=== PATIENT | male | born 1975 | race African-American/Black ===

== ENCOUNTER → 2017-09-27 | Outpatient (CLI) | payer BC ==
--- NOTE | 2017-09-27 11:27 | CT ---
EXAMINATION TYPE: CT lumbar spine wo con DATE OF EXAM: 09/27/2017 COMPARISON: NONE HISTORY: Low back pain CT DLP: 1015 mGycm Automated exposure control for dose reduction was used. An unenhanced CT of the lumbar spine was performed. Bone and soft tissue window settings are submitt ed as well as coronal and sagittal reconstructions. FINDINGS: Lumbar vertebral bodies show preserved height and alignment, bone mineralization. No evident spondylo lysis. Some loss of disc height present L5-S1. Vacuum phenomenon present at the sacroiliac joints. So me minimal spurring present on the left greater than right. L1-L2: Normal disc space height. No disc herniation protrusion or central stenosis. No facet joint arthropathy. No evidence for foraminal encroachment. L2-L3: Minimal posterior broad-based disc bulge causes only slight anterior mass effect on the thecal sac. No central stenosis or foraminal encroachment. L3-L4: Minimal posterior broad-based disc bulge. No significant central stenosis or foraminal encroac hment. L4-L5: Posterior broad-based disc bulge causes minimal anterior mass effect on the thecal sac. No sig nificant foraminal encroachment or central stenosis. L5-S1: Minimal posterior broad-based disc bulge may contact the proximal S1 nerve roots. No significa nt central stenosis or foraminal encroachment. IMPRESSION: No paraspinal masses are identified. Lumbar segments are intact. Mild degenerative disc disease, mil d degenerative changes suspected at the sacroiliac joints.
--- NOTE | 2017-09-27 11:29 | CT ---
EXAMINATION TYPE: CT thoracic spine wo con DATE OF EXAM: 09/27/2017 COMPARISON: NONE HISTORY: 1730 CT DLP: Low back pain mGycm Automated exposure control for dose reduction was used. Helical acquisition through the thoracic spin e. Coronal and sagittal reconstructions. FINDINGS: Thoracic vertebral bodies show preserved height and alignment. There is normal bone mineralization. M ultilevel spondylosis is present. There is no evident spinal stenosis, significant foraminal encroach ment, or disc herniation. IMPRESSION: THORACIC SPONDYLOSIS.
== END | disposition home or self-care (01) ==
LOC: RADCTMAIN 08:42
PROVIDERS: ATTEND Pediatrics
DX: M51.36 Other intervertebral disc degeneration, lumbar region (principal); M43.02 Spondylolysis, cervical region
CPT/HCPCS: 72128; 72131

== ENCOUNTER 2019-09-14 09:44 | Observation (INO) | payer BC, OTHER ==
[2019-09-14] MEDS ORDERED: NITROGLYCERIN OINT 1 INCH/GM PACKET TOPICAL STA (10:09)
[2019-09-14] MEDS ORDERED: ASPIRIN 81 MG PO STA (10:09)
[2019-09-14 10:24] LABS: Basophils # (A) 0.1 k/uL (0-0.2); Basophils % (A) 1 %; Eosinophils # (A) 0.1 k/uL (0-0.7); Eosinophils % (A) 1 %; HCT 42.9 % (39.0-53.0); HGB 14.7 gm/dL (13.0-17.5); Lymphocytes % (A) 26 %; MCH 31.9 pg (25.0-35.0); MCHC 34.3 g/dL (31.0-37.0); MCV 93.1 fL (80.0-100.0); Mean Platelet Volume 7.5; Monocytes # (A) 0.4 k/uL (0-1.0); Monocytes % (A) 5 %; Neutrophils # (A) 5.1 k/uL (1.3-7.7); Neutrophils % (A) 65 %; Platelet Count 231 k/uL (150-450); RBC 4.61 m/uL (4.30-5.90); RDW 12.5 % (11.5-15.5); WBC 7.8 k/uL (3.8-10.6)
[2019-09-14 10:33] LABS: Partial Thromboplastin Time 25.2 sec (22.0-30.0); Prothrombin Time 10.6 sec (9.0-12.0)
[2019-09-14 10:35] LABS: ALT 35 U/L (4-49); AST 33 U/L (17-59); African American GFR (CKD) >90 (>60 ml/min/1.73 sqM); Albumin 4.9 g/dL (3.5-5.0); Alkaline Phosphatase 58 U/L (38-126); Anion Gap 16 mmol/L; Blood Urea Nitrogen 13 mg/dL (9-20); Calcium 10.3 mg/dL (8.4-10.2); Carbon Dioxide 25 mmol/L (22-30); Chloride 97 mmol/L (98-107); Glucose 98 mg/dL (74-99); Magnesium 1.7 mg/dL (1.6-2.3); Non-African American GFR(CKD) >90 (>60 ml/min/1.73 sqM); Potassium 3.7 mmol/L (3.5-5.1); Sodium 138 mmol/L (137-145); Total Bilirubin 0.8 mg/dL (0.2-1.3); Total Protein 8.7 g/dL (6.3-8.2)
--- NOTE | 2019-09-14 11:07 | XR ---
EXAMINATION TYPE: XR chest 2V DATE OF EXAM: 09/14/2019 COMPARISON: NONE HISTORY: Chest pain TECHNIQUE: Frontal and lateral views of the chest are obtained. FINDINGS: There is no focal air space opacity. No evidence for pneumothorax. No pleural effusion. The cardiac silhouette size is within normal limits. The osseous structures are grossly intact. IMPRESSION: 1. No acute cardiopulmonary process.
--- NOTE | 2019-09-14 11:42 | ED ---
Chest Pain HPI - General Source: patient Mode of arrival: wheelchair Limitations: no limitations <Greer Holloway - Last Filed: 09/14/19 11:54> <Parveen Jimenez - Last Filed: 09/14/19 11:57> - General Chief Complaint: Chest Pain Stated Complaint: chest pain, SOB Time Seen by Provider: 09/14/19 10:09 - History of Present Illness Initial Comments: 43-year-old male with history of hypertension presenting today for chief complaint of chest pain, SOB. She states chest pain shortness of breath began this morning he states it radiated down his left arm. Patient states it was substernal and felt like a pressure. Patient states he feels heart racing. Patient denies experiencing this in the past patient does state that he thinks this may be related to be getting the medication Adipex. Patient states at one point while driving to work he felt presyncopal and that is when he decided to present to the emergency department for further evaluation. Denies DVT, history of pulmonary embolism history of leg swelling pain with deep inspiration or hemoptysis, no recent surgeries or travel. Patient admits to at nausea when he felt as the past hours for consistent since subsided denies jaw pain denies any known cardiac history. Patient denies diabetes, nonsmoker. Patient denies fevers, cough, congestion. Patient has had people within his department test + for covid 19. Patient denies any other + ROS. Upon arrival patinet given aspirin and nitroglycerin paste. (Greer Holloway) - Related Data Allergies Allergy/AdvReac Type Severity Reaction Status Date / Time No Known Allergies Allergy Verified 09/14/19 09:52 Review of Systems ROS Other: All systems not noted in ROS Statement are negative. <Greer Holloway - Last Filed: 09/14/19 11:54> ROS Other: All systems not noted in ROS Statement are negative. <Parveen Jimenez - Last Filed: 09/14/19 11:57> ROS Statement: Those systems with pertinent positive or pertinent negative responses have been documented in the HPI. EKG Findings - EKG Comments: EKG Findings:: Ventricular rate 79 beats minute, LA interval 180 ms, QRS adventist 80 ms, QT/QTC 360/412 ms. This is normal sinus no ST elevation or depression. <Greer Holloway - Last Filed: 09/14/19 11:54> Past Medical History Past Medical History: Hypertension History of Any Multi-Drug Resistant Organisms: None Reported Past Surgical History: No Surgical Hx Reported Smoking Status: Never smoker Past Alcohol Use History: Occasional Past Drug Use History: None Reported <Greer Holloway - Last Filed: 09/14/19 11:54> General Exam Limitations: no limitations <Greer Holloway - Last Filed: 09/14/19 11:54> - General Exam Comments Initial Comments: General: The patient is awake and alert, in no distress Eye: Pupils are equal, round and reactive to light, extra-ocular movements are intact. No nystagmus. There is normal conjunctiva bilaterally. No signs of icterus. Ears, nose, mouth and throat: There are moist mucous membranes and no oral lesions. Neck: The neck is supple, there is no tenderness or JVD. Cardiovascular: There is a regular rate and rhythm. No murmur, rub or gallop is appreciated. Respiratory: Lungs are clear to auscultation, respirations are non-labored, breath sounds are equal. No wheezes, stridor, rales, or rhonchi. Musculoskeletal: Normal ROM, no tenderness. Strength 5/5. Sensation intact. radial pulses equal bilaterally 2+. Neurological: A&O x 3. CN II-XII intact, There are no obvious motor or sensory deficits. Coordination appears grossly intact. Speech is normal. Skin: Skin is warm and dry and no rashes or lesions are noted. No LE swelling/no edema. Psychiatric: Cooperative, appropriate mood & affect, normal judgment. (Greer Holloway) Course <Parveen Jimenez - Last Filed: 09/14/19 11:57> Vital Signs 09/14/19 09/14/19 09/14/19 09:49 10:09 10:30 Temperature 98.9 F Pulse Rate 91 76 73 Respiratory 18 16 Rate Blood Pressure 143/79 135/90 O2 Sat by Pulse 100 99 Oximetry 09/14/19 11:08 Temperature Pulse Rate 64 Respiratory 16 Rate Blood Pressure 114/87 O2 Sat by Pulse 99 Oximetry - Reevaluation(s) Reevaluation #1: 09/14/19 11:57 PA supervision: I personally evaluate this case patient does present with complaints of chest pain. The patient does have symptoms are consistent with coronary syndrome. He will be admitted to case is discussed with Dr. La. (Parveen Jimenez) Chest Pain MDM <Greer Holloway - Last Filed: 09/14/19 11:54> - MDM 43-year-old male presents today for chief complaint of chest pain. He began a new medication at attacks. Patient was presyncopal. After nitroglycerin paste patient pain subsided. Concerning for coronary cause of CP. Patient given aspirin. Patient initial troponin (-). Will trend. Dr. La accepted admission. Discussed case wtih Dr. Jimenez who reviewed EKG. (Greer Holloway) Disposition Is patient prescribed a controlled substance at d/c from ED?: No Time of Disposition: 11:45 Decision to Admit Reason: Admit from EC Decision Date: 09/14/19 Decision Time: 11:45 <Greer Holloway - Last Filed: 09/14/19 11:54> <Pavreen Jimenez - Last Filed: 09/14/19 11:57> Clinical Impression: Chest pain, Heart palpitations, Pre-syncope Disposition: ADMITTED IP TO THIS [facility] Condition: Stable
[2019-09-14] MEDS ORDERED: NITROGLYCERIN SL TABS 0.4 MG TAB SUBLINGUAL PRN (11:44)
[2019-09-14 12:50] LABS: Amphetamine Screen,Urine Detected (NotDetected); Barbiturate Screen,Urine Not Detected (NotDetected); Benzodiazepines Screen,Urine Detected (NotDetected); Cocaine Screen,Urine Not Detected (NotDetected); Methadone Screen, Urine Not Detected (NotDetected); Opiate Screen,Urine Not Detected (NotDetected); Oxycodone Screen, Urine Not Detected (NotDetected); Phencyclidine Screen,Urine Not Detected (NotDetected); Tricyclic Antidepressant,Urine Not Detected (NotDetected); Urn Cannabinoid Scrn Not Detected (NotDetected)
[2019-09-14] MEDS ORDERED: ACETAMINOPHEN TAB 325 MG TAB PO PRN (17:50)
--- NOTE | 2019-09-14 18:03 | P.HPIM ---
History of Present Illness H&P Date: 09/14/19 Chief Complaint: Feeling unwell History of presenting complaint: This is a pleasant 43-year-old patient of Dr. Dye. Patient takes a beta reyna for hypertension. Normally in good health. Patient started his first dose of Adipex-P for weight loss measures yesterday morning. Had gone into work. Started having symptoms that included heart racing tired nausea rundown disease. When he woke up this morning he was IN a sweat in a small breakfast started getting dizzy also has some chest pressure. Did not radiate. Overall did not feel well at all. Tired rundown. Secondary to come down to the ER. No fever no chills. No shortness of breath. Review of systems: GEN.: Tired, rest as above EYES: None HEENT: None NECK: None RESPIRATORY: None CARDIOVASCULAR: As above GASTROINTESTINAL: None GENITOURINARY: None MUSCULOSKELETAL: None LYMPHATICS: None HEMATOLOGICAL: None PSYCHIATRY: Slightly anxious NEUROLOGICAL: None Past medical history to include: Hypertension Social history: Does smoke in the past. Alcohol occasionally. Denies use of any recreational drugs. 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 . Physical examination: VITAL SIGNS: 98.9, 91, 18, 143/79, 100% on room air GENERAL: BMI 28.7, laying in bed tired appearing. EYES: Pupils equal. Conjunctiva normal. HEENT: External appearance of nose and ears normal, oral cavity grossly normal. NECK: JVD not raised; masses not palpable. HEART: First and second heart sounds are normal; no edema. LUNGS: Respiratory rate normal; clear to auscultation. ABDOMEN: Soft, nontender, liver spleen not palpable, no masses palpable. PSYCH: Alert and oriented x3; mood and affect normal. NEUROLOGICAL: Cranial nerves grossly intact; no facial asymmetry, power and sensation grossly intact. LYMPHATICS: No lymph nodes palpable in the axilla and neck INVESTIGATIONS, reviewed in the clinical context: White count 7.8 hemoglobin 14.7 platelets 231if she 0.7 creatinine 0.82 Troponin I 2 negative Urine drug screen positive for amphetamine and benzodiazepine. COVID-19 PCR-not detected EKG tracing personally reviewed by me-normal sinus rhythm Chest x-ray film personally reviewed by me-lungs clear Assessment: -Patient presents to significant side effect of Opgszy-C-rcphy is a stimulant and had pronounced physiological manifestation of the same. Especially he takes a beta reyna I think this may have come to the effects of the same. -Essential hypertension -Overweight Plan: Patient admitted for observation. We'll keep the patient on telemetry. Hydrate the patient overnight. Lovenox for DVT prophylaxis. And his younger age but could be better side effect profile with BOGDAN inhibitor or ARB in place of beta reyna. If need be we'll put him on the same. Discussed with the patient. We'll also the patient see a dietitian. Past Medical History Past Medical History: Hypertension History of Any Multi-Drug Resistant Organisms: None Reported Past Surgical History: No Surgical Hx Reported Past Anesthesia/Blood Transfusion Reactions: No Reported Reaction Past Psychological History: No Psychological Hx Reported Smoking Status: Former smoker Past Alcohol Use History: Occasional Past Drug Use History: None Reported - Past Family History Father Family Medical History: Blood Disorder Additional Family Medical History / Comment(s): multiple myloma Mother Family Medical History: Cancer Additional Family Medical History / Comment(s): Breast ca Medications and Allergies Home Medications Medication Instructions Recorded Confirmed Type Atenolol/Chlorthalidone 1 tab PO DAILY 09/14/19 09/14/19 History [Atenolol-Chlorthalidone 50-25] Ergocalciferol (Vitamin D2) 50,000 unit PO MO 09/14/19 09/14/19 History [Drisdol] Phentermine HCl [Adipex-P] 37.5 mg PO DAILY 09/14/19 09/14/19 History Allergies Allergy/AdvReac Type Severity Reaction Status Date / Time No Known Allergies Allergy Verified 09/14/19 12:21 Physical Exam Vitals: Vital Signs Temp Pulse Pulse Resp BP BP Pulse Ox 09/14/19 16:10 98.9 F 65 18 115/76 98 09/14/19 12:30 98.7 F 63 18 122/76 98 09/14/19 12:00 62 18 108/78 99 09/14/19 11:30 62 18 116/87 100 09/14/19 11:08 64 16 114/87 99 09/14/19 10:30 73 16 135/90 99 09/14/19 10:09 76 09/14/19 09:49 98.9 F 91 18 143/79 100 Intake and Output 05/09/2809/14/19 09/14/19 06:59 14:59 22:59 Other: # Voids 0 0 # Bowel Movements 0 Weight 90.718 kg Results CBC & Chem 7: 09/14/19 10:10 09/14/19 10:10 Labs: Abnormal Lab Results - Last 24 Hours (Table) 09/14/19 09/14/19 Range/Units 10:10 12:23 Chloride 97 L (98-107) mmol/L Calcium 10.3 H (8.4-10.2) mg/dL Total Protein 8.7 H (6.3-8.2) g/dL Ur Amphetamines Screen Detected H (NotDetected) U Benzodiazepines Scrn Detected H (NotDetected) Thrombosis Risk Factor Assmnt - Choose All That Apply Any of the Below Risk Factors Present?: Yes Each Factor Represents 1 point: Age 41-60 years Other Risk Factors: No Other congenital or acquired thrombophilia - If yes, enter type in comment: No Thrombosis Risk Factor Assessment Total Risk Factor Score: 1 Thrombosis Risk Factor Assessment Level: Low Risk
[2019-09-14] MEDS: ENOXAPARIN 40 MG/0.4 ML SYRINGE SQ SCH (19:56)
[2019-09-14] MEDS: LACTATED RINGERS 1,000 ML IV SCH (19:56)
[2019-09-14 20:24] LABS: Glucose,Whole Blood 91 mg/dL (75-99)
[2019-09-15 04:50] VITALS: RESP 18
[2019-09-15 06:21] LABS: Glucose,Whole Blood 103 mg/dL (75-99)
[2019-09-15] MEDS: LACTATED RINGERS 1,000 ML IV SCH ×2 (06:44→09:00)
[2019-09-15 06:45] LABS: Cholesterol 180 mg/dL (<200); HDL Cholesterol 53 mg/dL (40-60); LDL Cholesterol,Calculated 74 mg/dL (0-99); Triglycerides 263 mg/dL (<150)
[2019-09-15] MEDS: ENOXAPARIN 40 MG/0.4 ML SYRINGE SQ SCH (08:59)
[2019-09-15] MEDS ORDERED: ASPIRIN 325 MG TAB PO SCH (09:00)
[2019-09-15] MEDS ORDERED: LOSARTAN 25 MG TAB PO SCH (09:15)
[2019-09-15 10:14] VITALS: BMI 28.8
--- NOTE | 2019-09-15 11:00 | ECHOF ---
Referral Reason:chest pain MEASUREMENTS -------- HEIGHT: 177.8 cm WEIGHT: 91.2 kg BP: 134/81 RVIDd: 3.5 cm (< 3.3) IVSd: 1.4 cm (0.6 - 1.1) LVIDd: 4.0 cm (3.9 - 5.3) LVPWd: 1.3 cm (0.6 - 1.1) IVSs: 1.7 cm LVIDs: 2.6 cm LVPWs: 1.3 cm LA Diam: 3.3 cm (2.7 - 3.8) LAESV Index (A-L): 21.48 ml/m Ao Diam: 3.5 cm (2.0 - 3.7) AV Cusp: 2.7 cm (1.5 - 2.6) MV EXCURSION: 19.740 mm (> 18.000) MV EF SLOPE: 134 mm/s (70 - 150) EPSS: 0.2 cm MV E Tacos: 0.98 m/s MV DecT: 214 ms MV A Tacos: 0.52 m/s MV E/A Ratio: 1.87 RAP: 5.00 mmHg RVSP: 26.36 mmHg FINDINGS -------- Sinus rhythm. This was a technically good study. The left ventricular size is normal. There is moderate concentric left ventricular hypertrophy. O verall left ventricular systolic function is normal with, an EF between 60 - 65 %. The right ventricle is mildly enlarged. Normal LA size by volume 22+/-6 ml/m2. The right atrium is normal in size. Interatrial and interventricular septum intact. The aortic valve is trileaflet and appears structurally normal. The mitral valve is normal. Mild tricuspid regurgitation present. Right ventricular systolic pressure is normal at < 35 mmHg. Trace/mild (physiologic) pulmonic regurgitation. The aortic root size is normal. Normal inferior vena cava with normal inspiratory collapse consistent with estimated right atrial pre ssure of 5 mmHg. There is no pericardial effusion. CONCLUSIONS -------- 1. Sinus rhythm. 2. This was a technically good study. 3. The left ventricular size is normal. 4. There is moderate concentric left ventricular hypertrophy. 5. Overall left ventricular systolic function is normal with, an EF between 60 - 65 %. 6. The right ventricle is mildly enlarged. 7. Normal LA size by volume 22+/-6 ml/m2. 8. The right atrium is normal in size. 9. Interatrial and interventricular septum intact. 10. The aortic valve is trileaflet and appears structurally normal. 11. The mitral valve is normal. 12. Mild tricuspid regurgitation present. 13. Right ventricular systolic pressure is normal at < 35 mmHg. 14. Trace/mild (physiologic) pulmonic regurgitation. 15. The aortic root size is normal. 16. Normal inferior vena cava with normal inspiratory collapse consistent with estimated right atrial pressure of 5 mmHg. 17. There is no pericardial effusion. [employer]: Martha Pickard RDCS
[2019-09-15 11:17] LABS: Glucose,Whole Blood 151 mg/dL (75-99)
[2019-09-15 13:21] VITALS: BP 116/76; PULSE 72; TEMP 98.9
--- NOTE | 2019-09-15 13:33 | P.CRDCN ---
History of Present Illness History of present illness: This is Maria C Cortez PA-C scribing on behalf of Dr. Ayers The patient was interviewed and examined by Dr. Ayers Emergency room notes reviewed HPI Patient is a 43-year-old male with a history of hypertension who presented with complaints of chest discomfort. He apparently started a new medication, Adipex yesterday. After starting the new medication, he had chest discomfort, palpitations, shortness of breath, nausea was presyncopal while driving. Upon arrival to the emergency department his pulse was 91, blood pressure 143/79, oxygen saturation 100% on room air, afebrile. EKG shows sinus mechanism with diffuse early repolarization abnormality V2 and V3. Chest x-ray showed no acute process. Today his symptoms have completely resolved. Denies any chest pain, palpitations, dyspnea. States he is ready to go home. ROS: No fevers, chills or rigors, no cough, phlegm or expectoration, Positive nausea, no vomiting or diarrhea no hematuria, dysuria, no musculoskeletal complaints, no strokes or seizures, no skin lesions. EXAMINATION: Patient is afebrile, pulse in the 60s, respirations 18, blood pressure 134/81, oxygen saturation 98% on room air Dr. Ayers examined the patient Patient is in no acute distress Heart is regular, no audible murmurs Lungs clear to auscultation bilaterally No JVD No edema REVIEW OF LABS, ECG & MEDICAL DATA WBC 7.8, hemoglobin 14.7, platelets 231, potassium 3.7, creatinine 0.8 to, BUN 13 Troponin negative 3 LDL 74 Coronavirus PCR not detected Patient has been in sinus rhythm monitor telemetry, no arrhythmias noted IMPRESSION / ASSESSMENT: #1 atypical chest discomfort with associated palpitations, shortness of breath, and nausea likely secondary to Adipex, troponins negative 3 #2 hypertension PLAN: stop atenolol and switch to losartan 25 mg daily discussed healthy diet and low sodium diet follow up outpatient with Dr. Ayers for further evaluation and workup next week in the AM Past Medical History Past Medical History: Hypertension History of Any Multi-Drug Resistant Organisms: None Reported Past Surgical History: No Surgical Hx Reported Past Anesthesia/Blood Transfusion Reactions: No Reported Reaction Past Psychological History: No Psychological Hx Reported Smoking Status: Former smoker Past Alcohol Use History: Occasional Past Drug Use History: None Reported - Past Family History Father Family Medical History: Blood Disorder Additional Family Medical History / Comment(s): multiple myloma Mother Family Medical History: Cancer Additional Family Medical History / Comment(s): Breast ca Medications and Allergies Home Medications Medication Instructions Recorded Confirmed Type Ergocalciferol (Vitamin D2) 50,000 unit PO MO 09/14/19 09/14/19 History [Drisdol] Losartan [Cozaar] 25 mg PO DAILY #90 tab 09/15/19 Rx Allergies Allergy/AdvReac Type Severity Reaction Status Date / Time No Known Allergies Allergy Verified 09/14/19 12:21 Physical Exam Vitals: Vital Signs Temp Pulse Pulse Resp BP BP Pulse Ox 09/15/19 04:00 98 F 61 18 134/81 98 09/15/19 00:00 62 16 134/79 100 09/14/19 20:00 98 F 75 16 135/71 99 09/14/19 16:10 98.9 F 65 18 115/76 98 09/14/19 12:30 98.7 F 63 18 122/76 98 09/14/19 12:00 62 18 108/78 99 09/14/19 11:30 62 18 116/87 100 09/14/19 11:08 64 16 114/87 99 09/14/19 10:30 73 16 135/90 99 09/14/19 10:09 76 09/14/19 09:49 98.9 F 91 18 143/79 100 Intake and Output 09/14/19 09/15/19 09/15/19 22:59 06:59 14:59 Intake Total 0 Balance 0 Intake: Oral 0 Other: # Voids 1 1 Weight 91.3 kg Results 09/14/19 10:10 09/14/19 10:10 Cardiac Enzymes 09/14/19 09/14/19 09/14/19 Range/Units 10:10 10:10 15:55 AST 33 (17-59) U/L Troponin I <0.012 <0.012 (0.000-0.034) ng/mL 09/14/19 Range/Units 22:21 AST (17-59) U/L Troponin I <0.012 (0.000-0.034) ng/mL Coagulation 09/14/19 Range/Units 10:10 PT 10.6 (9.0-12.0) sec APTT 25.2 (22.0-30.0) sec Lipids 09/15/19 Range/Units 05:45 Triglycerides 263 H (<150) mg/dL Cholesterol 180 (<200) mg/dL HDL Cholesterol 53 (40-60) mg/dL CBC 09/14/19 Range/Units 10:10 WBC 7.8 (3.8-10.6) k/uL RBC 4.61 (4.30-5.90) m/uL Hgb 14.7 (13.0-17.5) gm/dL Hct 42.9 (39.0-53.0) % Plt Count 231 (150-450) k/uL Comprehensive Metabolic Panel 09/14/19 Range/Units 10:10 Sodium 138 (137-145) mmol/L Potassium 3.7 (3.5-5.1) mmol/L Chloride 97 L (98-107) mmol/L Carbon Dioxide 25 (22-30) mmol/L BUN 13 (9-20) mg/dL Creatinine 0.82 (0.66-1.25) mg/dL Glucose 98 (74-99) mg/dL Calcium 10.3 H (8.4-10.2) mg/dL AST 33 (17-59) U/L ALT 35 (4-49) U/L Alkaline Phosphatase 58 (38-126) U/L Total Protein 8.7 H (6.3-8.2) g/dL Albumin 4.9 (3.5-5.0) g/dL Current Medications Generic Name Dose Route Start Last Admin Trade Name Freq PRN Reason Stop Dose Admin Acetaminophen 650 mg 09/14/19 17:50 Tylenol Tab PO Q4HR PRN Fever and/ or Pain Aspirin 325 mg 09/15/19 09:00 Aspirin PO DAILY [facility] Enoxaparin Sodium 40 mg 09/14/19 17:30 09/14/19 19:56 Lovenox SQ 40 mg DAILY [facility]AK Administration Lactated Ringer's 1,000 mls @ 125 mls/hr 09/14/19 17:30 09/15/19 06:44 Lactated Ringers IV Not Given .Q8H PALAK Nitroglycerin 0.4 mg 09/14/19 11:44 Nitrostat SUBLINGUAL Q5M PRN Chest Pain Intake and Output 09/14/19 09/15/1909/14/20 22:59 06:59 14:59 Intake Total 0 Balance 0 Intake: Oral 0 Other: # Voids 1 1 Weight 91.3 kg 09/14/19 10:10 09/14/19 10:10
--- NOTE | 2019-09-16 21:20 | P.DS ---
Providers Date of admission: 09/14/19 11:44 Expected date of discharge: 09/15/19 Attending physician: Yadiel La Consults: 09/14/19 11:44 Consult Physician Urgent Consulting Provider: Merlin Hahn Consult Reason/Comments: chest pain r/o Do you want consulting provider notified?: Yes, Notify in am Primary care physician: Wil Dye [facility] Course: Chief Complaint: Feeling unwell History of presenting complaint: This is a pleasant 43-year-old patient of Dr. Dye. Patient takes a beta reyna for hypertension. Normally in good health. Patient started his first dose of Adipex-P for weight loss measures yesterday morning. Had gone into work. Started having symptoms that included heart racing tired nausea rundown disease. When he woke up this morning he was IN a sweat in a small breakfast started getting dizzy also has some chest pressure. Did not radiate. Overall did not feel well at all. Tired rundown. Secondary to come down to the ER. No fever no chills. No shortness of breath. Admitted with severe side effects of Adipex-P. Discontinued. Feeling nearly back to normal at the time of discharge. Blood pressure medications were adjusted to start the patient on losartan and his home dose of beta reyna was discontinued. Yiraw-[id number]-[id number] was discussed with the patient detail. Also discussed at length with diet control measures. Questions were answered. Patient will return to work after taking 2 more days off. Discussion and discharge planning more than 35 minutes Consultation: Dr. Ad Aguilar from cardiology Physical examination: VITAL SIGNS: 98.8, 67, 18, 134/96, 98% on room air GENERAL: Comfortable. EYES: Pupils equal. Conjunctiva normal. HEENT: External appearance of nose and ears normal, oral cavity grossly normal. NECK: JVD not raised; masses not palpable. HEART: First and second heart sounds are normal; no edema. LUNGS: Respiratory rate normal; clear to auscultation. ABDOMEN: Soft, nontender, liver spleen not palpable, no masses palpable. PSYCH: Alert and oriented x3; mood and affect normal. INVESTIGATIONS, reviewed in the clinical context: White count 7.8 hemoglobin 14.7 platelets 231if she 0.7 creatinine 0.82 Troponin I 2 negative Urine drug screen positive for amphetamine and benzodiazepine. COVID-19 PCR-not detected EKG tracing personally reviewed by me-normal sinus rhythm Chest x-ray film personally reviewed by me-lungs clear LDL 74 2-D echocardiogram-year 60-65% Assessment: -Acute severe side effects of Adipex-P -Essential hypertension -Overweight Disposition: Home Patient Condition at Discharge: Stable Plan - Discharge Summary Discharge Rx Participant: Yes New Discharge Prescriptions: New Losartan [Cozaar] 25 mg PO DAILY #90 tab Discontinued Phentermine HCl [Adipex-P] 37.5 mg PO DAILY Atenolol/Chlorthalidone [Atenolol-Chlorthalidone 50-25] 1 tab PO DAILY No Action Ergocalciferol (Vitamin D2) [Drisdol] 50,000 unit PO MO Discharge Medication List Ergocalciferol (Vitamin D2) [Drisdol] 50,000 unit PO MO 09/14/19 [History] Losartan [Cozaar] 25 mg PO DAILY #90 tab 09/15/19 [Rx] Follow up Appointment(s)/Referral(s): Antwan Ayers MD [STAFF PHYSICIAN] - 1 Week (follow up with Dr. Ayers next week in the morning, needs an appointment at 8:30 or 9:00) Wil Dye MD [Primary Care Provider] - 1-2 days (Please call for an appointment for this next week.) Discharge/Stand Alone Forms: Work/School Release / Restrict Discharge Disposition: HOME SELF-CARE
== END 2019-09-15 15:59 | disposition home or self-care (01) ==
LOC: EC 09:44 → 3SCARD 11:44
PROVIDERS: ADMIT Hospitalist; ATTEND Hospitalist
DX: R07.89 Other chest pain (principal); R55 Syncope and collapse; R11.0 Nausea; R06.02 Shortness of breath; R00.2 Palpitations; R00.0 Tachycardia, unspecified; R42 Dizziness and giddiness; T50.5X5A Adverse effect of appetite depressants, initial encounter; I10 Essential (primary) hypertension; E66.3 Overweight; Z68.28 Body mass index [BMI] 28.0-28.9, adult; Z20.828 Contact with and (suspected) exposure to other viral communicable diseases; Z79.899 Other long term (current) drug therapy; Z87.891 Personal history of nicotine dependence; Z80.7 Family history of other malignant neoplasms of lymphoid, hematopoietic and related tissues; Z80.3 Family history of malignant neoplasm of breast
CPT/HCPCS: 96372 ×2; 93005 ×2; 99285; 36415; 93306; 80061; 80053; 83735; 84484; 85025; 85610; 85730; 80306; 87635; 71046; G0378 ×2; J1650 ×2